=== PATIENT | female | born 1975 | race Caucasian/White ===

== ENCOUNTER 2022-10-28 17:25 | Emergency (ER) | payer MEDICARE ==
[~2022-10-28] VITALS: Ht 162.6 cm; Wt 77.0 kg
[2022-10-28 18:30] LABS: BASOPHILS % (AUTO) 0.3 % (0-1); EOSINOPHILS % (AUTO) 0.5 % (0-6); HEMATOCRIT 39.4 % (35.0-45.0); MEAN CORPUSCULAR HEMOGLOBIN 30.7 PG (27.0-31.0)
[2022-10-28 18:32] LABS: HEMOGLOBIN 13.3 g/dl (12.0-16.0); LYMPHOCYTES # (AUTO) 2.9 X10'3 (1.1-4.8); LYMPHOCYTES % (AUTO) 41.3 % (21-51); MEAN CORPUSCULAR HGB CONC 33.8 g/dL (33.0-36.5); MEAN CORPUSCULAR VOLUME 90.8 FL (78-98); MEAN PLATELET VOLUME 7.5 FL (7.4-10.4); MONOCYTES # (AUTO) 0.4 X10'3 (0-0.9); MONOCYTES % (AUTO) 5.2 % (2-12); NEUTROPHILS # (AUTO) 3.7 X10'3 (1.8-7.7); NEUTROPHILS % (AUTO) 52.7 % (42-75); PLATELET COUNT 231 X10'3 (140-440); RED BLOOD COUNT 4.34 X10'6 (4.20-5.60); RED CELL DISTRIBUTION WIDTH 13.2 % (11.5-14.5)
[2022-10-28 18:39] LABS: ALANINE AMINOTRANSFERASE 34 U/L (12-78); ALBUMIN 3.4 G/DL (3.4-5.0); ALBUMIN/GLOBULIN RATIO 0.7 (1.1-1.5); ALKALINE PHOSPHATASE 113 IU/L (46-116); ANION GAP 7 (8-16); ASPARTATE AMINO TRANSFERASE 22 U/L (10-37); BILIRUBIN,TOTAL 0.2 MG/DL (0.1-1.0); BLOOD UREA NITROGEN 11 MG/DL (7-18); BUN/CREATININE RATIO 13.1 (6.6-38.0); CALCIUM 9.4 MG/DL (8.5-10.1); CHLORIDE 104 MMOL/L (99-107); CREATININE 0.84 MG/DL (0.40-0.90); GLUCOSE 87 MG/DL (70-104); LIPASE 56 U/L (73-393); POTASSIUM 3.7 MMOL/L (3.5-5.1); SODIUM 142 MMOL/L (135-145); TOTAL CARBON DIOXIDE 30.6 MMOL/L (24-32); TOTAL PROTEIN 8.1 G/DL (6.4-8.2); eGFR 73 ML/MIN
[2022-10-29] MEDS ORDERED: proMETHazine 25mg tablet PO ONE (07:25)
[2022-10-29] MEDS ORDERED: ondansetron 4mg rapidly disintigrating tab PO ONE (07:25)
[2022-10-29] MEDS ORDERED: famotidine 20mg tablet PO ONE (07:25)
[2022-10-29] MEDS ORDERED: mag hydrox/Alum hydrox/simeth 30ml oral suspension PO ONE (07:25)
[2022-10-29] MEDS ORDERED: LIDOcaine Viscous 15ml cup MM ONE (07:25)
[2022-10-29] MEDS ORDERED: ONDA8TAB13 PO (07:28)
[2022-10-29] MEDS ORDERED: PANT-47 PO (07:28)
[2022-10-29] MEDS ORDERED: ketorolac trometh inj. 60 MG/2 ML VIAL IM ONE (08:05)
[2022-10-29] MEDS ORDERED: proCHLORperazine 10 MG/2 ml inj IM ONE (08:05)
[2022-10-29 09:04] VITALS: BP 155/86
== END 2022-10-29 09:07 | disposition home or self-care (01) ==
LOC: ER 17:28
DX: K92.0 Hematemesis (principal); R10.30 Lower abdominal pain, unspecified; I11.9 Hypertensive heart disease without heart failure; Z88.6 Allergy status to analgesic agent; Z88.8 Allergy status to other drugs, medicaments and biological substances; Z79.899 Other long term (current) drug therapy
CPT/HCPCS: 36415; 80053; 83690; 85025; 86885; 86900; 86901; 96372; 99284; J0780; J1885; Q0169